=== PATIENT | female | born 1990 | race Caucasian/White ===

== ENCOUNTER 2021-07-13 05:17 | Inpatient (IN) | payer BC ==
[2021-07-13] MEDS ORDERED: Ondansetron PF 4 MG/2 ML Vial IVP PRN ×3 (05:58→13:45)
[2021-07-13] MEDS ORDERED: Famotidine/PF 20 mg/2ml Vial SLOW IVP PRN (05:58)
[2021-07-13] MEDS ORDERED: Promethazine HCl 25 MG/ML VIAL IM PRN ×3 (05:58→13:45)
[2021-07-13] MEDS ORDERED: hydrALAZINE 20 MG/ML VIAL SLOW IVP PRN ×2 (05:58→13:45)
[2021-07-13] MEDS ORDERED: Lactated Ringer's 1,000 ML IV SCH (05:58)
[2021-07-13] MEDS ORDERED: Bicitra 30 ML UDCUP PO PRN (05:58)
[2021-07-13] MEDS ORDERED: CEFAZOLIN 2 GM in Premix Bag 1 BAG IVPB SCH (06:00)
[2021-07-13 06:09] VITALS: BMI 28.3
[2021-07-13 06:19] LABS: Hemoglobin 11.5 g/dL (12.0-15.5); Mean Corpuscular HGB CONC 33.6 g/dL (32.0-36.0); Mean Corpuscular Hemoglobin 30.3 pg (27.0-33.0); Mean Corpuscular Volume 90.2 fl (81.6-98.3); Mean Platelet Volume 9.4 fl (7.4-10.4); Platelet Count 229 10x3/uL (150-450); RBC Distribution Width 14.5 % (11.5-14.5); Red Blood Cell (RBC) Count 3.79 10x6/uL (3.90-5.03); White Blood Cell (WBC) Count 13.6 10x3/uL (3.5-10.5)
[2021-07-13 06:49] LABS: Syphilis Antibody Nonreactive (Nonreactive); Syphilis Antibody Index 0.02 S/CO (<1.00 Non-Reactive)
[2021-07-13] MEDS ORDERED: Ketorolac Tromethamine 30 MG/ML VIAL ONE (07:06)
[2021-07-13] MEDS ORDERED: Phenylephrine 40 MG/NS 250 ML 250 ML ONE (07:06)
[2021-07-13] MEDS ORDERED: Ondansetron PF 4 MG/2 ML Vial ONE (07:06)
[2021-07-13] MEDS ORDERED: PHENYLEPHRINE-NS 100 MCG/ML 10 ML SYRINGE ONE (07:07)
[2021-07-13] MEDS ORDERED: Oxytocin 10 UNITS/ML VIAL ONE ×2 (07:07→08:55)
[2021-07-13] MEDS ORDERED: Morphine PF 10 MG/10 ML VIAL ONE (07:14)
[2021-07-13] MEDS ORDERED: ePHEDrine Sulfate 50 MG/10 ML VIAL ONE ×2 (07:56→08:48)
[2021-07-13 08:11] LABS: Hep B Surf Ag Non-Reactive S/CO (NonReactive)
[2021-07-13] MEDS ORDERED: PROPOFOL 20 ML ONE (08:16)
[2021-07-13 08:27] LABS: HBSAg Index 0.18 S/CO (0-0.99)
[2021-07-13] MEDS ORDERED: Methylergonovine 0.2 MG/ML VIAL ONE (08:29)
[2021-07-13] MEDS ORDERED: Fentanyl 100 MCG/2 ML VIAL ONE (08:30)
[2021-07-13] MEDS ORDERED: Hydrocerin (Eucerin) Cream 120 gm Jar TOP PRN (10:07)
[2021-07-13] MEDS ORDERED: Fentanyl 100 MCG/2 ML VIAL SLOW IVP PRN (10:07)
[2021-07-13] MEDS ORDERED: Promethazine HCl 25 MG SUPP PR PRN (10:07)
[2021-07-13] MEDS ORDERED: Naloxone HCl 0.4 mg/ml Vial IV PRN (10:07)
[2021-07-13] MEDS ORDERED: Ondansetron HCl/PF 4 MG/2 ML Vial IVP PRN (10:07)
[2021-07-13] MEDS ORDERED: diphenhydrAMINE 50 MG/ML VIAL IVP PRN (10:07)
[2021-07-13] MEDS ORDERED: Naloxone HCl 0.4 mg/ml Vial IVP PRN ×2 (10:07)
[2021-07-13] MEDS ORDERED: Meperidine HCl/PF 25 MG/ML VIAL SLOW IVP PRN (10:07)
[2021-07-13] MEDS ORDERED: Communication Order-Pharmacy FS SCH (10:15)
[2021-07-13] MEDS ORDERED: Ketorolac Tromethamine 30 MG/ML VIAL IVP SCH (10:15)
[2021-07-13] MEDS ORDERED: Meperidine HCl/PF 25 MG/ML VIAL ONE (12:00)
[2021-07-13] MEDS ORDERED: NS w/ Oxytocin 30 units 500 ML IV SCH (13:45)
[2021-07-13] MEDS ORDERED: Misoprostol 200 MCG TAB PR PRN (13:45)
[2021-07-13] MEDS ORDERED: Boostrix 0.5 ML (Tdap) VIAL IM ONE (13:45)
[2021-07-13] MEDS ORDERED: diphenhydrAMINE 25 MG CAP PO PRN (13:45)
[2021-07-13] MEDS ORDERED: Methylergonovine 0.2 MG TAB PO PRN (13:45)
[2021-07-13] MEDS ORDERED: Bisacodyl 10 MG SUPP PR PRN (13:45)
[2021-07-13] MEDS: Lactated Ringer's 1,000 ML IV SCH (15:09)
[2021-07-13] MEDS: Ketorolac Tromethamine 30 MG/ML VIAL IVP PRN ×2 (17:33→23:14)
[2021-07-13] MEDS: Ferrous Sulfate 325 MG TAB PO SCH (21:21)
[2021-07-13] MEDS: Docusate Calcium (SURFAK) 240 MG CAP PO SCH (21:48)
[2021-07-14] MEDS: Ketorolac Tromethamine 30 MG/ML VIAL IVP PRN (04:59)
[2021-07-14] MEDS: Simethicone Chewable 80 MG TAB PO PRN ×2 (04:59→21:27)
[2021-07-14 06:35] LABS: Hemoglobin 8.6 g/dL (12.0-15.5); Mean Corpuscular HGB CONC 33.5 g/dL (32.0-36.0); Mean Corpuscular Hemoglobin 31.5 pg (27.0-33.0); Mean Corpuscular Volume 94.1 fl (81.6-98.3); Mean Platelet Volume 9.5 fl (7.4-10.4); Platelet Count 191 10x3/uL (150-450); RBC Distribution Width 14.5 % (11.5-14.5); Red Blood Cell (RBC) Count 2.73 10x6/uL (3.90-5.03); White Blood Cell (WBC) Count 14.7 10x3/uL (3.5-10.5)
[2021-07-14] MEDS: Lactated Ringer's 1,000 ML IV SCH ×2 (06:51→14:05)
[2021-07-14] MEDS: Docusate Calcium (SURFAK) 240 MG CAP PO SCH ×2 (10:43→21:22)
[2021-07-14] MEDS: Prenatal Vitamin 1 TAB PO SCH (10:43)
[2021-07-14] MEDS: Ferrous Sulfate 325 MG TAB PO SCH ×2 (10:43→21:22)
[2021-07-14] MEDS: HYDROcodone/Acetaminophen 5/325 mg Tablet PO PRN ×3 (10:44→17:48)
[2021-07-14] MEDS: Ibuprofen 800 MG TAB PO SCH ×2 (14:13→21:22)
[2021-07-15] MEDS: Ibuprofen 800 MG TAB PO SCH ×2 (05:00→14:22)
[2021-07-15] MEDS: HYDROcodone/Acetaminophen 5/325 mg Tablet PO PRN ×2 (06:55→11:59)
[2021-07-15 07:54] VITALS: BP 118/76; TEMP 98.4
[2021-07-15] MEDS: Lactated Ringer's 1,000 ML IV SCH ×2 (08:32→08:43)
[2021-07-15] MEDS: Docusate Calcium (SURFAK) 240 MG CAP PO SCH (08:35)
[2021-07-15] MEDS: Ferrous Sulfate 325 MG TAB PO SCH (08:35)
[2021-07-15] MEDS: Prenatal Vitamin 1 TAB PO SCH (08:35)
[2021-07-15] MEDS: Simethicone Chewable 80 MG TAB PO PRN (08:37)
== END 2021-07-15 14:40 | disposition home or self-care (01) | DRG 788 ==
LOC: CSHLD 05:17 → CSHPP 12:30
PROVIDERS: ADMIT Obstetrics & Gynecology; ATTEND Obstetrics & Gynecology
PROC: 10D00Z1 Extraction of Products of Conception, Low, Open Approach (ICD-10-PCS; principal; 2021-07-13)
DX: O34.211 Maternal care for low transverse scar from previous cesarean delivery (principal); Z3A.39 39 weeks gestation of pregnancy; Z37.0 Single live birth; Z20.822 Contact with and (suspected) exposure to COVID-19; O62.1 Secondary uterine inertia; O90.0 Disruption of cesarean delivery wound
CPT/HCPCS: 36415; 51702; 85027; 86780; 86850; 86900; 86901; 87340; J1885; J2175; J2210; J2274; J2405; J2590; J2704; J3010; S0028